=== PATIENT | male | born 1960 | race Caucasian/White ===

== ENCOUNTER 2019-07-15 12:29 | Outpatient (CLI) | payer MEDICARE, OTHER ==
[2019-07-15] MEDS ORDERED: DARU800T2 PO (13:12)
[2019-07-15] MEDS ORDERED: SENN1TAB67 PO (13:12)
[2019-07-15] MEDS ORDERED: SULF1TAB24 PO (13:12)
[2019-07-15] MEDS ORDERED: ELVI1TAB3 PO (13:12)
[2019-07-15] MEDS ORDERED: LIDO35.46 RC (13:12)
[2019-07-15] MEDS ORDERED: ALPR1TAB2 PO (13:12)
== END 2019-07-15 23:59 | disposition home or self-care (01) ==
LOC: STAR 12:29
PROVIDERS: ATTEND Colon & Rectal Surgery
DX: Z02.9 Encounter for administrative examinations, unspecified (principal)

== ENCOUNTER 2019-07-24 06:04 | Day surgery (SDC) | payer MEDICARE, OTHER ==
[~2019-07-24] VITALS: Ht 182.9 cm; Wt 53.0 kg
[~2019-07-24 06:04] MED LIST: ALPR1TAB2 PO; DARU800T2 PO; ELVI1TAB3 PO; LIDO35.46 RC; SENN1TAB67 PO; SULF1TAB24 PO
[2019-07-24 06:52] VITALS: BP 115/77
[2019-07-24] MEDS ORDERED: LACTATED RINGERS 1,000 ML IV SCH (06:56)
[2019-07-24] MEDS ORDERED: BUPIVACAINE/PF 0.5% ONE (08:47)
[2019-07-24] MEDS ORDERED: EPINEPHRINE 1 MG/ML, 1ML ONE (08:47)
[2019-07-24] MEDS ORDERED: FENTANYL PF 100 MCG/2ML ONE (09:02)
[2019-07-24] MEDS ORDERED: OXYcodone 5 MG/5 ML ORAL.SOL UDC PO PRN (09:30)
[2019-07-24] MEDS ORDERED: HYDROmorphone 1 MG/ML, 1ML INJ IVPush PRN (09:30)
[2019-07-24] MEDS ORDERED: KETOROLAC 30 MG/1 ML IV PRN (09:30)
[2019-07-24] MEDS ORDERED: ALBUTEROL SULFATE 2.5 MG/3 ML NPPB PRN (09:30)
[2019-07-24] MEDS ORDERED: LABETALOL 5MG/ML, 20ML IV PRN (09:30)
[2019-07-24] MEDS ORDERED: MEPERIDINE/PF 25MG/0.5ML IVPush PRN (09:30)
[2019-07-24] MEDS ORDERED: ACETAMINOPHEN 325 MG TABLET PO PRN (09:30)
[2019-07-24] MEDS ORDERED: PROMETHAZINE 25 MG/ML, 1ML IV PRN (09:30)
[2019-07-24] MEDS ORDERED: FENTANYL PF 100 MCG/2ML IV PRN (09:30)
[2019-07-24] MEDS ORDERED: DIAZEPAM 5 MG/ML, 2ML IVPush PRN (09:30)
[2019-07-24] MEDS ORDERED: hydrALAzine 20 MG/ML, 1ML IV PRN (09:30)
[2019-07-24] MEDS ORDERED: ONDANSETRON 2MG/ML, 2ML ONE (09:42)
[2019-07-24] MEDS ORDERED: DEXAMETHASONE 4 MG/ML, 1ML ONE (09:42)
[2019-07-24] MEDS ORDERED: NEOSTIGMINE 1 MG/ML, 10ML ONE (09:42)
[2019-07-24] MEDS ORDERED: GLYCOPYRROLATE 0.2MG/1ML, 5ML ONE (09:42)
[2019-07-24] MEDS ORDERED: SUCCINYLCHOLINE 20 MG/ML, 10ML ONE (09:42)
[2019-07-24] MEDS ORDERED: PROPOFOL 10 MG/ML, 20ML ONE ×2 (09:42)
[2019-07-24] MEDS ORDERED: ROCURONIUM 10MG/ML,5ML ONE (09:42)
[2019-07-24] MEDS ORDERED: CEFAZOLIN 1,000 MG ONE (09:42)
== END 2019-07-24 11:55 | disposition home or self-care (01) ==
LOC: OUT 06:04
PROVIDERS: ATTEND Colon & Rectal Surgery
DX: K62.89 Other specified diseases of anus and rectum (principal); C44.520 Squamous cell carcinoma of anal skin; H54.62 Unqualified visual loss, left eye, normal vision right eye; F17.210 Nicotine dependence, cigarettes, uncomplicated; Z79.899 Other long term (current) drug therapy; Z85.048 Personal history of other malignant neoplasm of rectum, rectosigmoid junction, and anus; Z92.21 Personal history of antineoplastic chemotherapy; Z92.3 Personal history of irradiation; Z98.890 Other specified postprocedural states
CPT/HCPCS: 46999; 88305; J0171; J0690; J1100; J2405; J2704; J2710; J3010; J7120; J0330

== ENCOUNTER 2019-11-08 11:27 | Inpatient (IN) | payer MEDICARE ==
[~2019-11-08] VITALS: Ht 180.3 cm; Wt 60.1 kg
[~2019-11-08 11:27] MED LIST changes: +DULO30CA2 PO; +GENVOYA PO; +PREG75CA PO; +VALG450T PO
--- NOTE | 2019-11-08 11:55 | NUR ---
PT SENT TO ER BY FOR POSSIBLE PICC LINE INFECTION, R/T BLOOD CULTURES DRAWN SUNDAY COMING BACK +. PT STS IN THE EVENINGS RECENTLY HAS BEEN DEVELOPING FEVERS. UPON ASSESSMENT OF PICC LIKE, NO REDNESS, SWELLING, OR PAIN NOTED. CCONNECTED TO ALL MONITORING, VSS. CALL LIGHT WITHIN REACH
[2019-11-08] MEDS ORDERED: VANCOMYCIN 1,500 MG in SODIUM CHLORIDE 0.9% 250 ML IV ONE (12:00)
[2019-11-08] MEDS ORDERED: VANCOMYCIN PER PHARMACY MC PRN (12:00)
[2019-11-08] MEDS ORDERED: SODIUM CHLORIDE FLUSH 10ML SYR IVF ONE (12:00)
--- NOTE | 2019-11-08 12:00 | NUR ---
IV PLACED LABS AND BLOOD CULTURES DRAWN. SECOND SET OF CULTURES DRAWN FROM PICC LINE SITE.
[2019-11-08 12:24] LABS: BASOPHILS # (AUTO) 0.01 x10^3/uL (0-0.1); BASOPHILS % (AUTO) 0 % (0-1); EOSINOPHILS % (AUTO) 0 % (1-7); LYMPHOCYTES # (AUTO) 0.44 x10^3/uL (1-3.4); LYMPHOCYTES % (AUTO) 12 % (22-44); MD NO; MEAN CORPUSCULAR HEMOGLOBIN 30.3 pg (27.5-34.5); MEAN CORPUSCULAR HGB CONC 32.1 g/dL (33.2-36.2); MEAN CORPUSCULAR VOLUME 94.4 fL (81-97); MEAN PLATELET VOLUME 9.1 fL (7.4-10.4); MONOCYTES # (AUTO) 0.16 x10^3/uL (0.2-0.8); MONOCYTES % (AUTO) 4 % (2-9); NEUTROPHILS # (AUTO) 3.19 x10^3/uL (1.8-6.8); NEUTROPHILS % (AUTO) 84 % (42-75); PLATELET COUNT 138 x10^3/uL (130-400); RED BLOOD COUNT 3.57 x10^6/uL (4.38-5.82); RED CELL DISTRIBUTION WIDTH 18.8 % (9.4-14.8)
[2019-11-08 12:31] LABS: ALBUMIN 2.8 g/dL (3.4-5.0); ANION GAP 7 mmol/L (5-15); CALCIUM 8.4 mg/dL (8.5-10.1); CHLORIDE 103 mmol/L (98-107)
--- NOTE | 2019-11-08 12:46 | NUR ---
ABX RUNNING, BLOOD CULTURES X2 DRAWN PRIOR TO ADMIN. NO C/O FROM PT AT THIS TIME. WILL CONTINUE TO MONITOR. CALL LIGHT WITHIN REACH
[2019-11-08] MEDS ORDERED: CHOL10003 PO (12:54)
[2019-11-08] MEDS ORDERED: VITAMIN E (12:54)
--- NOTE | 2019-11-08 13:01 | NUR ---
REPORT GIVEN TO [facility], PT READY FOR TRANSPORT UP TO FLOOR
[2019-11-08 13:48] VITALS: BP 125/81
[2019-11-08] MEDS ORDERED: HYDROcodone/APAP 5/325 TABLET PO PRN (14:00)
[2019-11-08] MEDS ORDERED: ACETAMINOPHEN 325 MG TABLET PO PRN (14:00)
[2019-11-08] MEDS: ENOXAPARIN 40 MG/0.4 ML SQ SCH (14:37)
[2019-11-08] MEDS: SODIUM CHLORIDE 0.9% 1,000 ML IV SCH ×2 (14:37→23:15)
[2019-11-08] MEDS ORDERED: ONDANSETRON 2MG/ML, 2ML IVPush PRN (15:30)
[2019-11-08] MEDS ORDERED: PREGABALIN 75 MG CAPSULE PO SCH (16:00)
[2019-11-08 19:12] LABS: CRYPTOSPORIDIUM ANTIGEN Negative (Negative)
[2019-11-08 20:16] VITALS: BP 114/69
[2019-11-08] MEDS ORDERED: DARUNAVIR 800 MG TABLET PO SCH (21:00)
[2019-11-08] MEDS: PREGABALIN 75 MG CAPSULE PO SCH (21:00)
[2019-11-08] MEDS ORDERED: TEMPLATE NON-FORMULARY MED. (Elviteg/Cobi/Emtric/Tenofo Ala (Genvoya Tablet) 1 TAB) PO SCH (21:00)
[2019-11-09] MEDS ORDERED: PHARMACOKINETIC MONITORING MC PRN (00:30)
[2019-11-09] MEDS ORDERED: VANCOMYCIN PER PHARMACY MC PRN (00:30)
[2019-11-09 01:13] VITALS: BP 131/76
[2019-11-09] MEDS: VANCOMYCIN 1,200 MG in SODIUM CHLORIDE 0.9% 250 ML IV SCH ×2 (01:17→12:34)
[2019-11-09 06:15] LABS: ANION GAP 8 mmol/L (5-15); CALCIUM 7.9 mg/dL (8.5-10.1); CHLORIDE 110 mmol/L (98-107); CREATININE 0.53 mg/dL (0.7-1.3)
[2019-11-09 06:21] LABS: MEAN CORPUSCULAR HEMOGLOBIN 30.5 pg (27.5-34.5); MEAN CORPUSCULAR HGB CONC 32.8 g/dL (33.2-36.2); MEAN CORPUSCULAR VOLUME 92.9 fL (81-97); RED BLOOD COUNT 3.05 x10^6/uL (4.38-5.82); RED CELL DISTRIBUTION WIDTH 18.3 % (9.4-14.8)
[2019-11-09 06:47] LABS: MD YES; MEAN PLATELET VOLUME 8.2 fL (7.4-10.4); PLATELET COUNT 111 x10^3/uL (130-400)
[2019-11-09 06:53] LABS: <PLATELET ESTIMATE> DECREASED; <PLT MORPHOLOGY> NORMAL PLT MORPH; ANISOCYTOSIS 1+; LYMPHS% (MANUAL) 21 % (22-44); MONOS% (MANUAL) 5 % (2-9); POLYCHROMASIA 1+; SEG#(MANUAL) 1.41 x10^3/uL (1.8-6.8); SEGS% (MANUAL) 74 % (42-75)
[2019-11-09 07:27] VITALS: BP 117/74
[2019-11-09] MEDS: DULOXETINE 30 MG CAPSULE.DR PO SCH (09:30)
[2019-11-09] MEDS: SULFAMETH./TRIMETHOPRIM DS 800MG/160MG TABLET PO SCH (09:30)
[2019-11-09 10:55] LABS: CLOSTRIDIUM DIFFICILE ANTIGEN NEGATIVE; CLOSTRIDIUM DIFFICILE TOXIN NEGATIVE (Negative)
[2019-11-09] MEDS: ENOXAPARIN 40 MG/0.4 ML SQ SCH (12:43)
[2019-11-09 12:45] VITALS: BP 98/59
[2019-11-09] MEDS ORDERED: LOPERAMIDE 2 MG CAPSULE PO PRN (13:00)
[2019-11-09] MEDS: [UNRECOGNIZED DRUG - OTHER] HOMEMEDPO SCH (19:02)
[2019-11-09] MEDS: DARUNAVIR 800 MG TABLET HOMEMEDPO SCH (19:03)
[2019-11-09 19:25] VITALS: BP 132/80
[2019-11-09] MEDS: PREGABALIN 75 MG CAPSULE PO SCH (19:42)
[2019-11-10] MEDS: VANCOMYCIN 1,200 MG in SODIUM CHLORIDE 0.9% 250 ML IV SCH ×2 (00:24→13:40)
[2019-11-10 03:08] VITALS: BP 124/78
[2019-11-10 06:06] LABS: ANION GAP 7 mmol/L (5-15); CHLORIDE 110 mmol/L (98-107)
[2019-11-10 06:09] LABS: CREATININE 0.51 mg/dL (0.7-1.3)
[2019-11-10 06:16] LABS: MEAN CORPUSCULAR HEMOGLOBIN 30.6 pg (27.5-34.5); MEAN CORPUSCULAR HGB CONC 32.8 g/dL (33.2-36.2); MEAN CORPUSCULAR VOLUME 93.4 fL (81-97); MEAN PLATELET VOLUME 8.6 fL (7.4-10.4); PLATELET COUNT 124 x10^3/uL (130-400); RED BLOOD COUNT 3.03 x10^6/uL (4.38-5.82); RED CELL DISTRIBUTION WIDTH 18.7 % (9.4-14.8)
[2019-11-10 06:35] LABS: MD YES
[2019-11-10 06:39] LABS: <PLATELET ESTIMATE> DECREASED; <PLT MORPHOLOGY> NORMAL PLT MORPH; ANISOCYTOSIS 1+; BAND#(MANUAL) 0.02 x10^3/uL; BANDS%(MANUAL) 1 % (0-7); LYMPH#(MANUAL) 0.49 x10^3/uL (1-3.4); LYMPHS% (MANUAL) 26 % (22-44); MONOS#(MANUAL) 0.15 x10^3/uL (0.3-2.7); MONOS% (MANUAL) 8 % (2-9); POLYCHROMASIA 1+; SEG#(MANUAL) 1.24 x10^3/uL (1.8-6.8); SEGS% (MANUAL) 65 % (42-75)
[2019-11-10 07:01] VITALS: BP 99/56
[2019-11-10] MEDS: SULFAMETH./TRIMETHOPRIM DS 800MG/160MG TABLET PO SCH (10:09)
[2019-11-10] MEDS: DULOXETINE 30 MG CAPSULE.DR PO SCH (10:10)
[2019-11-10 13:01] VITALS: BP 127/86
[2019-11-10] MEDS: ENOXAPARIN 40 MG/0.4 ML SQ SCH (13:40)
[2019-11-10] MEDS: DAPTOMYCIN 250 MG in SODIUM CHLORIDE 0.9% 100 ML IV SCH (16:59)
[2019-11-10 18:25] VITALS: BP 124/69
[2019-11-10] MEDS: DARUNAVIR 800 MG TABLET HOMEMEDPO SCH (19:34)
[2019-11-10] MEDS: [UNRECOGNIZED DRUG - OTHER] HOMEMEDPO SCH (19:34)
[2019-11-10] MEDS: PREGABALIN 75 MG CAPSULE PO SCH (19:41)
[2019-11-11 03:22] VITALS: BP 131/77
[2019-11-11 07:34] VITALS: BP 124/76
[2019-11-11] MEDS: DULOXETINE 30 MG CAPSULE.DR PO SCH (09:50)
[2019-11-11] MEDS: SULFAMETH./TRIMETHOPRIM DS 800MG/160MG TABLET PO SCH (09:51)
[2019-11-11] MEDS: ENOXAPARIN 40 MG/0.4 ML SQ SCH (14:00)
[2019-11-11 14:55] VITALS: BP 136/81
[2019-11-11] MEDS: DAPTOMYCIN 250 MG in SODIUM CHLORIDE 0.9% 100 ML IV SCH (15:42)
[2019-11-11] MEDS: DARUNAVIR 800 MG TABLET HOMEMEDPO SCH ×2 (19:00→21:00)
[2019-11-11] MEDS: [UNRECOGNIZED DRUG - OTHER] HOMEMEDPO SCH (19:00)
[2019-11-11 19:16] VITALS: BP 121/73
[2019-11-11] MEDS: PREGABALIN 75 MG CAPSULE PO SCH (21:00)
[2019-11-12 04:00] VITALS: BP 121/73
[2019-11-12 07:00] VITALS: BP 111/63
[2019-11-12] MEDS: DULOXETINE 30 MG CAPSULE.DR PO SCH (08:06)
[2019-11-12] MEDS: SULFAMETH./TRIMETHOPRIM DS 800MG/160MG TABLET PO SCH (08:06)
[2019-11-12] MEDS: ENOXAPARIN 40 MG/0.4 ML SQ SCH (12:28)
[2019-11-12 14:45] VITALS: BP 119/69
[2019-11-12] MEDS: DAPTOMYCIN 250 MG in SODIUM CHLORIDE 0.9% 100 ML IV SCH (14:49)
== END 2019-11-12 15:49 | disposition home or self-care (01) | DRG 314 ==
LOC: ED 12:19 → EDIP 12:28 → 3WST 13:28 → DCLOUNGE 11-12 15:45
PROVIDERS: ADMIT Family Medicine; ATTEND Internal Medicine
DX: T80.211A Bloodstream infection due to central venous catheter, initial encounter (principal); E43 Unspecified severe protein-calorie malnutrition; R64 Cachexia; B20 Human immunodeficiency virus [HIV] disease; E87.2 Acidosis; E46 Unspecified protein-calorie malnutrition; Z68.1 Body mass index [BMI] 19.9 or less, adult; A08.8 Other specified intestinal infections; F17.210 Nicotine dependence, cigarettes, uncomplicated; Y84.8 Other medical procedures as the cause of abnormal reaction of the patient, or of later complication, without mention of misadventure at the time of the procedure; R62.7 Adult failure to thrive; B95.7 Other staphylococcus as the cause of diseases classified elsewhere; K52.9 Noninfective gastroenteritis and colitis, unspecified; Z90.49 Acquired absence of other specified parts of digestive tract; Z88.8 Allergy status to other drugs, medicaments and biological substances; Z85.048 Personal history of other malignant neoplasm of rectum, rectosigmoid junction, and anus; Z92.21 Personal history of antineoplastic chemotherapy
CPT/HCPCS: 36415; 80048; 80202; 82040; 83605; 83993; 84145; 85025; 85651; 86140; 87015; 87040; 87070; 87077; 87102; 87186; 87206; 87324; 87328; 87329; 87497; 87536; 93306; 96365; G0378; J0878; J3370; J7030; J7050